=== PATIENT | male | born 1990 | race Caucasian/White ===

== ENCOUNTER 2017-01-05 13:12 | Emergency (ER) | payer SELFPAY ==
[~2017-01-05] VITALS: Ht 175.3 cm; Wt 88.0 kg
[~2017-01-05 13:12] MED LIST: CLON1 PO; LORTA10 PO; TRIAM.1%T EXT; ZYRT10TA12 PO
[2017-01-05 13:15] VITALS: BP 145/83; PULSE 73; RESP 16; TEMP 98.7; O2SAT 98
[2017-01-05] MEDS ORDERED: oxyCODONE/ACETAMINOPHEN 5 MG/325 MG TAB PO ONE (13:30)
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
[2017-01-05 13:54] LABS: BLOOD, URINE NEG (NEG); GLUCOSE,URINE NEG (NEG); KETONE, URINE NEG (NEG); NITRITE,URINE NEG (NEG); PH, URINE 6.5 (5.0-8.5)
[2017-01-05 14:01] LABS: COMMENT (UR) CULT NOT INDICATED; CULTURE IF INDICATED CULT NOT INDICATED; METHOD OF COLLECTION CLEAN CATCH; RBC, URINE 0-3 /hpf (0-3); SQUAMOUS EPITHELIAL CELL URINE 0-5 /hpf (0-5); URINE COLOR YELLOW (YELLW/STRAW)
[2017-01-05] MEDS ORDERED: CYCL10TA PO (14:24)
[2017-01-05] MEDS ORDERED: HYDR-2376 PO (14:24)
== END 2017-01-05 14:42 | disposition home or self-care (01) ==
LOC: PHED 13:12
DX: M54.5 Low back pain (principal); F17.200 Nicotine dependence, unspecified, uncomplicated
CPT/HCPCS: 81001; 99284

== ENCOUNTER 2017-02-23 18:51 | Emergency (ER) | payer SELFPAY ==
[~2017-02-23] VITALS: Ht 175.3 cm; Wt 89.4 kg
[~2017-02-23 18:51] MED LIST changes: +CYCL10TA PO; +HYDR-2376 PO
[2017-02-23 18:59] VITALS: BP 140/74; PULSE 79; RESP 16; TEMP 97.7; O2SAT 99
--- NOTE | 2017-02-23 19:42 | PD ---
HPI Chief Complaint: Musculoskeletal Complaint Time Seen by Provider: 19:36 Travel History International Travel<30 days: No Contact w/Intl Traveler<30days: No Traveled to known affect area: No History of Present Illness HPI 26-year-old male here with right shoulder and right ankle pain. He reports that yesterday he was taking crispness lights off his roof when he tripped, twisted his ankle, fell 7 feet off the roof. He landed on his right shoulder. No head trauma. He has been having right shoulder pain, aching, worse with movement, and right ankle pain, aching, worse with movement and ambulation. He denies any other injuries and has no other complaints. PFSH Past Medical History Bipolar Disorder: Yes Depression: Yes (BIPOLAR) Cancer: No Cardiovascular Problems: No Diabetes: No Diminished Hearing: No Psychiatric: Yes Immunizations Current: Yes Seizures: No Thyroid Disease: No Ulcer: No Social History Alcohol Use: No Tobacco Use: Yes (one ppd) Substance Use: No Allergies-Medications (Allergen,Severity, Reaction): Coded Allergies: amoxicillin (Verified Allergy, Unknown, 02/23/17) ibuprofen (Verified Allergy, Unknown, 02/23/17) Reported Meds & Prescriptions Reported Meds & Active Scripts Active Hydrocodone-Acetaminophen 7.5-300 Mg Tab 1 Tab PO Q4H PRN Flexeril (Cyclobenzaprine HCl) 10 Mg Tab 10 Mg PO TID Zyrtec (Cetirizine HCl) 10 Mg Tab 10 Mg PO DAILY Kenalog (Triamcinolone Acet) 0.1 % Oin 0.1 % EXT BID Reported Klonopin (Clonazepam) 1 Mg Tab 1 Mg PO HS Hydrocodone/Acetaminophen 10 mg/325 mg 10 Mg/325 Mg Tab 1 Tab PO Q6H PRN Review of Systems Except as stated in HPI: all other systems reviewed are Neg Physical Exam Narrative GENERAL: Well-developed well-nourished male in no acute distress SKIN: Warm and dry. HEAD: Atraumatic. Normocephalic. EYES: Pupils equal and round. No scleral icterus. No injection or drainage. ENT: No nasal bleeding or discharge. Mucous membranes pink and moist. NECK: Trachea midline. No JVD. CARDIOVASCULAR: Regular rate and rhythm. No murmur appreciated. RESPIRATORY: No accessory muscle use. Clear to auscultation. Breath sounds equal bilaterally. GASTROINTESTINAL: Abdomen soft, non-tender, nondistended. Hepatic and splenic margins not palpable. MUSCULOSKELETAL: There is some soft tissue swelling on the lateral malleolus of the right ankle with associated tenderness to palpation. There is pain with range of motion activities of the right shoulder with no obvious deformity. Distal pulses are intact. NEUROLOGICAL: Awake and alert. No obvious cranial nerve deficits. Motor grossly within normal limits. Normal speech. PSYCHIATRIC: Appropriate mood and affect; insight and judgment normal. Data Data Last Documented VS Vital Signs Date Time Temp Pulse Resp B/P (MAP) Pulse Ox O2 Delivery O2 Flow Rate FiO2 02/23/17 18:59 97.7 79 16 140/74 (96) 99 Orders Orders Ankle, Complete ([id number]) (02/23/17 ) Foot, Complete ([id number]) (02/23/17 ) Ice/Cold Pack (02/23/17 19:39) Shoulder, Complete (>2vws) (02/23/17 ) Splint Or Brace Apply/Monitor (02/23/17 20:33) Crutches (02/23/17 20:33) Support Splint (02/23/17 20:52) Ed Discharge Order (02/23/17 20:52) MDM Medical Decision Making Medical Screen Exam Complete: Yes Emergency Medical Condition: Yes Medical Record Reviewed: Yes Differential Diagnosis Right shoulder strain, clavicular separation, rotator cuff tear, proximal humeral fracture, ankle sprain, avulsion fracture, fibular fracture Narrative Course X-ray imaging of the right shoulder and right ankle be obtained. Ice pack provided. Tylenol provided. X-ray imaging reveals no acute abnormalities. The patient is being discharged with ankle stirrup splint, crutches, shoulder sling. Diagnosis Primary Impression: Right ankle sprain Additional Impression: Right shoulder strain Additional Instructions: Ice pack several times a day to the affected area 15 minutes at a time. Crutches as needed. Perform passive range of motion activities several times a day. Follow-up with primary care physician in 2 weeks. If right shoulder range of motion limitation persists outpatient MRI imaging may be warranted. Med/Other Pt SpecificInfo: Orthopedic Instructions Disposition: 01 DISCHARGE HOME Condition: Stable Bradford Gary Feb 23, 2017 19:42
--- NOTE | 2017-02-23 20:14 | RADRPT ---
EXAM DATE/TIME: 02/23/2017 19:46 [facility] COMPARISON: No previous studies available for comparison. INDICATIONS : Right foot pain after fall off of roof. MEDICAL HISTORY : None. SURGICAL HISTORY : None. ENCOUNTER: Initial ACUITY: 2 days PAIN SCORE: 8/10 LOCATION: Right foot. FINDINGS: Three view examination of the right foot demonstrates no soft tissue swelling, dislocation, or fractu re. The tarsal bones appear intact. The interphalangeal and metatarsophalangeal joints are intact. The calcaneus is intact. Bony mineralization is normal. CONCLUSION: Unremarkable examination of the right foot. Robin Vasquez Jr., MD on February 23, 2017 at 20:12 Board Certified Radiologist. This report was verified electronically.
--- NOTE | 2017-02-23 20:14 | RADRPT ---
EXAM DATE/TIME: 02/23/2017 19:46 [facility] COMPARISON: No previous studies available for comparison. INDICATIONS : Right ankle pain after fall off of roof. MEDICAL HISTORY : None. SURGICAL HISTORY : None. ENCOUNTER: Initial ACUITY: 2 days PAIN SCORE: 8/10 LOCATION: Right lateral and posterior ankle. FINDINGS: Three view exam was performed of the right ankle. The bony structures are in normal alignment. No e vidence of fracture, dislocation, or soft tissue swelling. The ankle mortise is intact. No radiopaq ue foreign bodies are seen. Bony mineralization is normal. CONCLUSION: Unremarkable examination of the right ankle. Robin Vasquez Jr., MD on February 23, 2017 at 20:12 Board Certified Radiologist. This report was verified electronically.
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
== END 2017-02-23 21:16 | disposition home or self-care (01) ==
LOC: PHEFT 18:51
DX: S93.401A Sprain of unspecified ligament of right ankle, initial encounter (principal); S43.401A Unspecified sprain of right shoulder joint, initial encounter; F31.9 Bipolar disorder, unspecified; F17.200 Nicotine dependence, unspecified, uncomplicated; W13.2XXA Fall from, out of or through roof, initial encounter; Y93.89 Activity, other specified
CPT/HCPCS: 73030; 73610; 73630; 99284; E0113; L1906